=== PATIENT | female | born 1975 | race Caucasian/White ===

== ENCOUNTER 2024-05-05 11:12 | Emergency (ER) | payer BC, SELFPAY ==
[2024-05-05] VITALS (18 sets, daily range): BP systolic 150–173; BP diastolic 100–118; PULSE 62–73; TEMP 36.8; O2SAT 73–100; BMI 25.7
--- NOTE | 2024-05-05 11:34 | ECG_ITS ---
[facility] Test Date: 2024-05-05 Pat Name: SRINIVASAN FISHER Department: Room: - Gender: Female Director Writing: : 1975 Requested By: Order Number: [id number] Reading MD: DC MORRELL Measurements Intervals [place] Rate: 62 P: 61 OH: 120 QRS: 70 QRSD: 94 T: 50 QT: 408 QTc: 413 Interpretive Statements 1100 Sinus rhythm 9110 normal ECG No previous ECG available for comparison Electronically Signed On 05-05-2024 22:16:04 EDT by DC MORRELL
--- NOTE | 2024-05-05 11:44 | XR_ITS ---
The [address] [address] Patient Name: SRINIVASAN FISHER MRN: [id number] date: 1975 Sex: F Assigned Patient Location: ER Current Patient Location: ED.MAIN Accession/Order Number: [id number] Exam Date: 05/05/2024 11:55 Report Date: 05/05/2024 12:11 At the request of: CARA EDMONDSON Procedure: XR chest 1V EXAMINATION: XR chest 1V HISTORY: presyncope COMPARISON: XR chest 11/23/2015 FINDINGS: LUNGS: No significant pulmonary parenchymal abnormalities. VASCULATURE: No increased pulmonary vasculature. PLEURA: No pneumothorax, effusion, or pleural thickening. CARDIAC: No cardiomegaly or cardiac silhouette abnormality. MEDIASTINUM: No visible mass or adenopathy. BONES: No fracture or visible bone lesion. OTHER: Negative. XR/XR chest 1V IMPRESSION: 1. No acute cardiopulmonary process. Electronically authenticated by: TOM PIERSON Date: 05/05/2024 12:11
--- NOTE | 2024-05-05 11:46 | ED.GENADUL1 ---
HPI HPI - General Adult General Chief complaint: Dizziness Stated complaint: DIZZY Time Seen by Provider: 05/05/24 11:39 Source: patient Mode of arrival: walk-in History of Present Illness HPI narrative: Patient presented to the emergency department for evaluation of dizzy spells. Patient states that on Friday she noted she was driving to work, and while she was driving she had a dizzy spell, states she felt hot, flushed, palpitations, sweaty, took her breath away. She states it lasted a side of the road to look past. States that has not happened again until today, while she was at work she had approximately 62nd episode where she felt the same thing. She had palpitations, shortness of breath, lightheaded, clammy, felt that she was going to pass out, brain fog. Last approximately 60 seconds and went away spontaneously. Patient states that she is currently a 7 to manage. Related Data Home Medications ?Medication ?Instructions ?Recorded ?Confirmed No Known Home Medications 05/05/24 05/05/24 Allergies Allergy/AdvReac Type Severity Reaction Status Date / Time No Known Drug Allergies Allergy Verified 05/05/24 11:25 Opioid HPI Opioid Management Most Recent Opioid Data: No Data to Display Review of Systems ROS Narrative Negative unless otherwise stated in the HPI Exam Narrative Exam Narrative: General: NAD, AAOx3, no distress Eyes: PERRL, EOMI, lids/conjunctiva normal. HEENT: NCAT, mmm Neck: Supple, no LAD, no bruit Respiratory: respiratory effort normal, speaks in full sentences, no tripod position, no accessory muscle use. Lungs clear to auscultation without rhonchi, wheezes, rales Cardiac: Regular rate and rhythm, no edema, regular s1/s2, no m/g/r Abdomen: Soft, ND/NT. No evidence of fluid wave. No pulsatile masses on exam, rebound tenderness, Guevara sign or pain over Mcburney's point. Neuro: Speech is clear and appropriate. Normal level of consciousness. Gait and coordination are normal. 5/5 strength in all extremities. Constitutional Vital Signs, click to edit/add: Last Vital Signs Temp 98.2 F 05/05/24 11:17 Pulse 62 05/05/24 13:00 Resp 16 05/05/24 13:00 BP 154/101 H 05/05/24 13:00 Pulse Ox 100 05/05/24 13:00 O2 Del Method Room Air 05/05/24 11:17 Course Vital Signs Vital signs: Vital Signs Temperature 98.2 F 05/05/24 11:17 Pulse Rate 63 05/05/24 11:17 Respiratory Rate 18 05/05/24 11:17 Blood Pressure 160/100 H 05/05/24 11:17 Pulse Oximetry 100 05/05/24 11:17 Oxygen Delivery Method Room Air 05/05/24 11:17 Temperature 98.2 F 05/05/24 11:17 Pulse Rate 62 05/05/24 13:00 Respiratory Rate 16 05/05/24 13:00 Blood Pressure 154/101 H 05/05/24 13:00 Pulse Oximetry 100 05/05/24 13:00 Oxygen Delivery Method Room Air 05/05/24 11:17 Medical Decision Making MDM Narrative Medical decision making narrative: [facility] Patient with history as above presented with presyncope. History obtained from patient. Patient was nontoxic, stable. Ambulatory. Exam as above. EKG reviewed. Labs reviewed. Independently reviewed imaging. Reviewed external records. Differential diagnosis considered. Overall presentation is consistent with presyncope The patient presents with near syncope/syncope is not suggestive of pulmonary embolus, cardiac ischemia, aortic dissection, Hypertrophic cardiomyopathy, or other serious etiology. Given the extremely low risk of these diagnoses further testing and evaluation for these possibilities does not appear to be indicated at this time. EKG shows no high risks features suggestive of conduction abnormality, such as long QT syndrome, Brugada syndrome, preexcitation syndrome, pericarditis or Hypertrophic cardiomyopathy . A 2 D ECHO can be done as outpatient. The patient has been instructed to return if the symptoms worsen or change in any way. Likely vasovagal in etiology. He has no neurologic, metabolic: hypoxia, hypoglycemia, hyperventilation, or psychiatric causes of syncope.No evidence of mechanical cardiac disease including aortic stenosis, mitral stenosis, pulmonary stenosis on exam. His EKG obtained showed no acute abnormalities. No evidence of sinus node dysfunction, AV conduction disease, tachyarrhythmia or Supraventricular arrhythmia. Advanced guidance has been given. Vss, pex is benign at this time. Pt to fu with pcp 1-2 days for reeval, rter should sx worsen, persist or become worrysome in any way. Patient has an appointment tomorrow at 1130 with her PCP. Pt expressed understanding and agreement with plan of care at this time. Will fu as planned. Pt stable for discharge. Medical Records Medical records reviewed: Yes I reviewed the patient's medical records Lab Data Lab results reviewed: Yes I reviewed the patient's lab results Labs: Lab Results 05/05/24 05/05/24 Range/Units 11:30 13:23 WBC 7.0 (4.0-11.0) 10^3/uL RBC 4.77 (4.20-5.40) 10^6/uL Hgb 15.7 (12.0-16.0) g/dL Hct 43.7 (36.0-48.0) % MCV 91.6 (81.0-99.0) fL MCH 32.9 (26.7-34.0) pg MCHC 35.9 H (29.9-35.2) g/dL RDW 12.0 (11.0-15.0) % Plt Count 212 (150-450) 10^3/uL MPV 10.7 (9.5-13.5) fL Neut % (Auto) 71.5 (43.0-75.0) % Lymph % (Auto) 21.2 (20.5-60.0) % [place] % (Auto) 5.9 (1.7-12.0) % Eos % (Auto) 0.7 L (0.9-7.0) % Baso % (Auto) 0.6 (0.2-2.0) % Neut # (Auto) 5.0 (1.4-6.5) 10^3/uL Lymph # (Auto) 1.5 (1.2-3.8) 10^3/uL [place] # (Auto) 0.4 (0.3-0.8) 10^3/uL Eos # (Auto) 0.1 (0.0-0.7) 10^3/uL Baso # (Auto) 0.0 (0.0-0.1) 10^3/uL Abs Immat Gran (auto) 0.01 (0.00-0.03) 10^3/uL Imm/Tot Granulo (auto) 0.1 (0.0-0.5) % PT 11.0 (9.0-11.6) sec INR 1.04 APTT 26.2 (22.3-36.2) sec Sodium 136 (136-145) mmol/L Potassium 3.8 (3.5-5.1) mmol/L Chloride 103 (98-107) mmol/L Carbon Dioxide 26.3 (21.0-32.0) mmol/L Anion Gap 10.5 BUN 9.0 (7.0-18.0) mg/dL Creatinine 0.74 (0.55-1.02) mg/dL Est GFR ( Amer) >60 (>=60) Est GFR (Non-Af Amer) >60 (>=60) BUN/Creatinine Ratio 12.2 Glucose 88 (74-106) mg/dL Calcium 8.8 (8.5-10.1) mg/dL Total Bilirubin 0.7 (0.2-1.0) mg/dL AST 14 L (15-37) U/L ALT 21 (14-59) U/L Alkaline Phosphatase 58 (46-116) U/L Troponin I High Sens <4.0 L <4.0 L (4.0-51.3) pg/mL Total Protein 7.3 (6.4-8.2) g/dL Albumin 4.1 (3.4-5.0) g/dL Globulin 3.2 g/dL Albumin/Globulin Ratio 1.3 Imaging Data Chest x-ray: Radiologist's impression: ITS Impressions Chest X-Ray 05/05/24 11:44 IMPRESSION: 1. No acute cardiopulmonary process. Electronically authenticated by: TOM PIERSON Date: 05/05/2024 12:11 Discharge Plan Discharge Stand Alone Forms: Portal Instructions Chief Complaint: Dizziness Clinical Impression: Pre-syncope Patient Disposition: Home, Self-Care Time of Disposition Decision: 14:07 Condition: Good Prescriptions / Home Meds: No Action No Known Home Medications Print Language: Albanian Instructions: Near Syncope (ED) Additional Instructions: Follow-up tomorrow with your PCP as discussed and previously scheduled Referrals: TESHA PARDO [Primary Care Provider] - 1 week
[2024-05-05 11:50] LABS: Basophils Percent Auto 0.6 % (0.2-2.0); Eosinophils Absolute Auto 0.1 10^3/uL (0.0-0.7); Eosinophils Percent Auto 0.7 % (0.9-7.0); Hematocrit 43.7 % (36.0-48.0); Hemoglobin 15.7 g/dL (12.0-16.0); Immature Granulocytes Abs Auto 0.01 10^3/uL (0.00-0.03); Immature Granulocytes Pct Auto 0.1 % (0.0-0.5); Lymphocytes Absolute Auto 1.5 10^3/uL (1.2-3.8); Lymphocytes Percent Auto 21.2 % (20.5-60.0); Mean Corpuscular HGB Conc 35.9 g/dL (29.9-35.2); Mean Corpuscular Hemoglobin 32.9 pg (26.7-34.0); Mean Corpuscular Volume 91.6 fL (81.0-99.0); Mean Platelet Volume 10.7 fL (9.5-13.5); Monocytes Absolute Auto 0.4 10^3/uL (0.3-0.8); Monocytes Percent Auto 5.9 % (1.7-12.0); Neutrophils Percent Auto 71.5 % (43.0-75.0); Platelet Count 212 10^3/uL (150-450); Red Blood Count 4.77 10^6/uL (4.20-5.40)
[2024-05-05] MEDS: ASPIRIN 81 MG TAB.CHEW 324 MG PO (12:04)
[2024-05-05 12:18] LABS: Alanine Aminotransferase 21 U/L (14-59); Albumin Globulin Ratio 1.3; Albumin Level 4.1 g/dL (3.4-5.0); Alkaline Phosphatase 58 U/L (46-116); Anion Gap 10.5; Aspartate Amino Transferase 14 U/L (15-37); BUN Creatinine Ratio 12.2; Bilirubin Total 0.7 mg/dL (0.2-1.0); Calcium 8.8 mg/dL (8.5-10.1); Carbon Dioxide 26.3 mmol/L (21.0-32.0); Chloride 103 mmol/L (98-107); Estimated GFR (African America >60 (>=60); Estimated GFR (Non-African Ame >60 (>=60); Globulin 3.2 g/dL; Glucose 88 mg/dL (74-106); Potassium 3.8 mmol/L (3.5-5.1); Sodium 136 mmol/L (136-145); Total Protein 7.3 g/dL (6.4-8.2); Troponin I High Sensitivity <4.0 pg/mL (4.0-51.3)
[2024-05-05 12:19] LABS: INR 1.04; Partial Thromboplastin Time 26.2 sec (22.3-36.2)
[2024-05-05 13:50] LABS: Troponin I High Sensitivity <4.0 pg/mL (4.0-51.3)
== END 2024-05-05 14:21 | disposition home or self-care (01) ==
PROVIDERS: Emergency Provider Emergency Medicine
DX: R55 Syncope and collapse (principal)
CPT/HCPCS: 36415; 71045; 80053; 84484; 85025; 85610; 85730; 93005; 99285